=== PATIENT | female | born 1985 | race Caucasian/White ===

== ENCOUNTER 2019-09-21 02:55 | Inpatient (IN) ==
[2019-09-21 03:54] LABS: INFLUENZA A NEGATIVE (NEGATIVE); INFLUENZA B NEGATIVE (NEGATIVE)
[2019-09-21] MEDS: DUONEB (A & A) INH ONE (03:57)
[2019-09-21] MEDS ORDERED: DUONEB (A & A) INH ONE ×2 (04:30→06:16)
[2019-09-21] MEDS ORDERED: PREDNISONE PO ONE (04:30)
[2019-09-21 05:47] LABS: BASO# 0.03 X1000 (0.0-0.2); BASO% 0.3 % (0.0-0.8); EOS# 0.39 X1000 (0.0-0.7); EOS% 4.4 % (0.0-10.0); HEMATOCRIT 44.4 % (37.0-47.0); HEMOGLOBIN 14.6 g/dL (12.0-16.0); IMM GRAN# 0.02 X1000 (0.0-0.04); IMM GRAN% 0.2 % (0.0-0.5); LYMPH# 2.61 X1000 (1.2-3.4); LYMPH% 29.3 % (20.5-51.1); MCH 27.4 PG (27-31); MCHC 32.9 g/dL (33-37); MCV 83.5 FL (81-99); MONO# 0.64 X1000 (0.11-0.59); MONO% 7.2 % (1.7-9.3); NEUT# 5.21 X1000 (1.4-6.5); NEUT% 58.6 % (42.2-75.2); PLT 222 X1000 (130-400); RBC 5.32 XMIL (4.2-5.4); RDW 12.5 % (11.5-14.5)
[2019-09-21 05:58] LABS: AGAP 14; ALBUMIN 4.6 g/dL (3.5-5.0); ALKALINE PHOSPHATASE 76 U/L (32-104); BUN 9 mg/dL (8-22); CALCIUM 9.6 mg/dL (8.8-10.2); CHLORIDE 101 mmol/L (98-107); COSMO 275; CREATININE 0.6 mg/dL (0.5-0.9); ESTIMATED GFR > 60; GLUCOSE 113 mg/dL (70-104); GOT 14 U/L (10-30); GPT 13 U/L (10-36); POTASSIUM 4.2 mmol/L (3.5-5.1); SODIUM 138 mmol/L (136-145); TCO2 23 mmol/L (25-35); TOTAL PROTEIN 7.1 g/dL (6.3-8.3)
[2019-09-21] MEDS ORDERED: NS 1,000 ML IV ONE (06:38)
[2019-09-21] MEDS ORDERED: ROCEPHIN 1 GM in NS 50 ML IV ONE (06:38)
[2019-09-21] MEDS ORDERED: ZITHROMAX 500 MG/NS 500 MG/250 ML IVPB IV ONE (06:38)
[2019-09-21 07:18] LABS: BE 1.8 mmoll (-3.0-3.0); BLOOD TYPE ARTERIAL; HCO3-(ACT) 26.2 mmoll (20.0-26.0); O2(CT) 18.4 mL/dL (15.0-23.0); O2HB 92.8 % (95.0-99.0); PCO2(98.6) 29 mmHg (35-45); PO2(98.6) 58 mmHg (60-100); SAMPLE BLOOD; SAO2 95.8 % (95.0-100.0); THB 14.1 g/dL (11.5-17.4); pH(98.6) 7.52 (7.35-7.45)
[2019-09-21 07:21] LABS: ALLEN TEST YES; MODALITY ROOM AIR
--- NOTE | 2019-09-21 07:31 | Diag Imaging Result Doc PS360 ---
EXAM: CHEST-1 VIEW HISTORY: SOB TECHNIQUE: Single view COMPARISON: 09/08/2017 FINDINGS: The lungs are well expanded. The heart is not enlarged. The vessels are not distended. There are no infiltrates. No effusion identified. IMPRESSION: Negative exam. Electronically signed by Enoch Callaway 09/21/2019 7:28 AM
[2019-09-21 08:44] LABS: BLOOD TYPE ARTERIAL; HCO3-(ACT) 24.1 mmoll (20.0-26.0); O2(CT) 16.3 mL/dL (15.0-23.0); O2HB 93.5 % (95.0-99.0); PCO2(98.6) 29 mmHg (35-45); PO2(98.6) 62 mmHg (60-100); SAMPLE BLOOD; SAO2 96.5 % (95.0-100.0); THB 12.4 g/dL (11.5-17.4); pH(98.6) 7.48 (7.35-7.45)
[2019-09-21 08:47] LABS: ALLEN TEST YES; MODALITY ROOM AIR
[2019-09-21] MEDS ORDERED: DUONEB (A & A) INH PRN (11:39)
[2019-09-21] MEDS ORDERED: ZOFRAN IV PRN (11:39)
[2019-09-21] MEDS: LEVAQUIN 500 MG/D5W 500 MG/100 ML IVPB IV SCH (12:19)
[2019-09-21] MEDS: NS 1,000 ML IV SCH ×2 (12:19→22:24)
[2019-09-21] MEDS: DUONEB (A & A) INH SCH ×4 (12:34→23:09)
--- NOTE | 2019-09-21 14:37 | HISTORY AND PHYSICAL ---
PRIMARY CARE PROVIDER: None. CHIEF COMPLAINT: Shortness of breath. HISTORY OF PRESENT ILLNESS: Ms Rowe is a 34-year-old female with a past medical history of GERD, who came to the ED complaining of a 3-day history of shortness of breath, chest tightness, complaining that it hurts to breathe, cough and congestion, fever of 101 degrees, and wheezing. She did have 1 episode of vomitus secondary to a coughing spell but no cardiac type chest pain, no palpitations, but no real nausea, vomiting, diarrhea, or constipation. Workup in the ED was essentially unremarkable. ABG showed a respiratory and metabolic acidosis. However, she does have some mild expiratory wheezes. We will admit her for asthma exacerbation. She had been treated a couple of weeks back for sinusitis with amoxicillin. PAST MEDICAL HISTORY: Gastroesophageal reflux disease. PAST SURGICAL HISTORY: BTL, section. HOME MEDICATIONS: Prilosec. FAMILY HISTORY: Denies. SOCIAL HISTORY: No tobacco, alcohol or illicit drug use. No vaping. 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 REVIEW OF SYSTEMS: Twelve-point review of systems complete and negative except for those mentioned in HPI. PHYSICAL EXAMINATION: VITAL SIGNS: Temperature is 98 degrees, heart rate 96, respirations 18, blood pressure 133/83, O2 is 97% on 2 L nasal cannula. GENERAL: Ms. Rowe is a pleasant 34-year-old female who is sitting up in the bed in no acute distress. HEENT: Atraumatic, normocephalic. PERRL. NECK: Supple. Trachea midline. CARDIOVASCULAR: S1, S2 appreciated. No murmurs, gallops, rubs noted. RESPIRATORY: Lung sounds, expiratory wheezes. No rales, rhonchi. GASTROINTESTINAL: Soft, nontender, nondistended. Positive bowel sounds x4 quadrants. LOWER EXTREMITIES: Negative for edema. Bilateral pedal pulses are palpable. NEUROLOGIC: No focal deficits noted. DIAGNOSTIC DATA: Chest x-ray, negative exam. LABORATORY DATA: White count 8, hemoglobin and hematocrit 14 and 44, platelet count is 222,000. D-dimer less than 0.27. Initial ABG, pH 7.52, pCO2 of 29, PO2 of 58, bicarbonate of 26, base excess of 1.8, O2 saturation 95 on room air. Repeat ABG, pH 7.48, pCO2 of 29, PO2 of 62, bicarbonate of 24, base excess of -1, O2 of 96 on room air. Chemistry: Sodium 138, potassium 4.2, BUN 9, creatinine 0.6, blood glucose is 113. Plasma lactate 1.7. ASSESSMENT AND PLAN: 1. Asthma exacerbation. We will continue with IV antibiotics, bronchodilators, supplemental O2, IV steroids and aggressive pulmonary toilet. We will recheck her chest x-ray in the a.m. and continue with IV hydration and a regular diet. 2. Metabolic and respiratory alkalosis as evidenced on ABG. The patient was placed on supplemental O2. We will recheck her ABG in the a.m. 3. Gastroesophageal reflux disease. Continue Prilosec. 4. Further recommendations to follow physician evaluation, laboratory and diagnostic data. Dictated by SEBASTIAN Maldonado for John Wellington MD cc: John Wellington MD MTDD
[2019-09-21] MEDS: SOLU-MEDROL IV SCH ×2 (15:39→22:10)
--- NOTE | 2019-09-21 17:37 | HISTORY AND PHYSICAL ---
ADDENDUM: Patient seen and examined by myself. Full note dictated and discussed with nurse practitioner. Patient presented to the hospital with fever, cough, congestion, increased work of breathing. Has no previous history of pulmonary disease per her, although oddly enough the chart states she has a history of asthma. She currently has wheezing, O2 saturation 94% on room air. She is afebrile. We are going to admit her to the hospital, place her on breathing treatments, oxygen, steroids, and will follow. cc: John Wellington MD
--- NOTE | 2019-09-21 18:26 | EKG Report ---
Test Performed on : 09/21/2019 06:32:55 AM Test Reason : cp Blood Pressure : / mmHG Vent. Rate : 093 BPM Atrial Rate : 093 BPM P-R Int : 134 ms QRS Dur : 070 ms QT Int : 346 ms P-R-T Axes : 021 019 025 degrees QTc Int : 430 ms Normal sinus rhythm. Low voltage QRS Cannot rule out Anterior infarct , age undetermined Abnormal ECG When compared with ECG of 11-JAN-2011 21:12, Nonspecific T wave abnormality now evident in Anterolateral leads Unconfirmed Result
[2019-09-21] MEDS: TYLENOL PO PRN (19:16)
[2019-09-22] MEDS: DUONEB (A & A) INH SCH ×6 (02:49→23:29)
[2019-09-22] MEDS: NS 1,000 ML IV SCH ×3 (03:45→22:24)
[2019-09-22] MEDS: SOLU-MEDROL IV SCH ×3 (05:46→22:24)
[2019-09-22] MEDS: PRILOSEC PO SCH ×2 (05:46→08:11)
[2019-09-22 06:00] LABS: BE -1.2 mmoll (-3.0-3.0); BLOOD TYPE ARTERIAL; METHB 0.9 % (0.0-1.5); O2(CT) 17.2 mL/dL (15.0-23.0); O2HB 96.3 % (95.0-99.0); PCO2(98.6) 34 mmHg (35-45); PO2(98.6) 100 mmHg (60-100); SAMPLE BLOOD; SAO2 98.9 % (95.0-100.0); THB 12.6 g/dL (11.5-17.4); pH(98.6) 7.43 (7.35-7.45)
[2019-09-22 06:03] LABS: ALLEN TEST NO; MODALITY CANNULA
[2019-09-22 07:00] LABS: HEMATOCRIT 37.4 % (37.0-47.0); HEMOGLOBIN 11.9 g/dL (12.0-16.0); IMM GRAN# 0.07 X1000 (0.0-0.04); IMM GRAN% 0.4 % (0.0-0.5); LYMPH# 1.29 X1000 (1.2-3.4); LYMPH% 8.3 % (20.5-51.1); MCH 26.9 PG (27-31); MCHC 31.8 g/dL (33-37); MCV 84.4 FL (81-99); MONO# 0.34 X1000 (0.11-0.59); MONO% 2.2 % (1.7-9.3); MPV 10.5 FL (7.4-10.4); NEUT# 13.86 X1000 (1.4-6.5); NEUT% 89.1 % (42.2-75.2); PLT 263 X1000 (130-400); RBC 4.43 XMIL (4.2-5.4); RDW 12.5 % (11.5-14.5); WBC 15.56 X1000 (4.8-10.8)
[2019-09-22 07:11] LABS: AGAP 14; BUN 7 mg/dL (8-22); CHLORIDE 107 mmol/L (98-107); COSMO 279; CREATININE 0.5 mg/dL (0.5-0.9); ESTIMATED GFR > 60; GLUCOSE 161 mg/dL (70-104); SODIUM 139 mmol/L (136-145); TCO2 19 mmol/L (25-35)
--- NOTE | 2019-09-22 07:22 | Diag Imaging Result Doc PS360 ---
EXAM: CHEST-PORTABLE - 09/22/2019 HISTORY: short of breath TECHNIQUE: Portable chest one view COMPARISON: 09/21/2019 FINDINGS: Heart size is normal. The lungs appear clear. There are possible tiny bilateral pleural effusions. There is no pneumothorax seen. IMPRESSION: Possible tiny bilateral pleural effusions. No other acute changes. Electronically signed by Nathan Null 09/22/2019 7:20 AM
[2019-09-22] MEDS: TYLENOL PO PRN (09:10)
[2019-09-22 09:19] LABS: LYMPHS 8 % (21-51); MONO 4 % (1-9); SEGS 88 % (42-75)
[2019-09-22] MEDS: TORADOL IV PRN ×2 (10:16→22:24)
--- NOTE | 2019-09-22 13:43 | PROGRESS NOTE ---
DATE: 09/22/2019 SUBJECTIVE: Patient notes she is still short of breath. States that she feels a little worse today breathing-[place]ough[place] than she did yesterday, notes she did not sleep at all last night. She was awake most of the night coughing and feeling some chest tightness. OBJECTIVE: Vital Signs: Temperature 97.6, pulse 70, respiratory rate 18, BP 116/66. General: Patient is awake, she pleasant. She is in mild respiratory distress. HEENT: Normocephalic. Neck: Supple. Cardiovascular: Regular rate. Chest: Improved from yesterday. Decreased wheezing, improved air movement from yesterday's exam. Abdomen: Soft, nondistended. Extremities: Moves all extremities. Neurologic: No changes. ASSESSMENT: 1. Asthma exacerbation. 2. Leukocytosis. 3. Reflux. PLAN: We are going to continue patient in the hospital. Continue breathing treatments, oxygen and steroids, and will follow. cc: John Wellington MD
[2019-09-22] MEDS: LEVAQUIN 500 MG/D5W 500 MG/100 ML IVPB IV SCH (14:45)
[2019-09-23] MEDS: DUONEB (A & A) INH SCH ×6 (03:34→23:15)
[2019-09-23] MEDS: NS 1,000 ML IV SCH (05:05)
[2019-09-23] MEDS: SOLU-MEDROL IV SCH ×2 (05:05→16:00)
[2019-09-23 06:37] LABS: HEMATOCRIT 34.6 % (37.0-47.0); HEMOGLOBIN 10.7 g/dL (12.0-16.0); MCH 26.8 PG (27-31); MCHC 30.9 g/dL (33-37); MCV 86.5 FL (81-99); MPV 10.6 FL (7.4-10.4); RDW 12.6 % (11.5-14.5); WBC 19.27 X1000 (4.8-10.8)
[2019-09-23] MEDS: PRILOSEC PO SCH (09:15)
[2019-09-23] MEDS ORDERED: BENADRYL IV ONE (11:27)
[2019-09-23] MEDS ORDERED: SODIUM CHLORIDE 0.9% INJ ONE (11:28)
[2019-09-23] MEDS ORDERED: PEPCID IV ONE (11:28)
[2019-09-23] MEDS: LEVAQUIN 500 MG/D5W 500 MG/100 ML IVPB IV SCH (13:27)
--- NOTE | 2019-09-23 13:49 | PROGRESS NOTE ---
DATE: 09/23/2019 SUBJECTIVE: The patient notes that she is breathing a lot easier. She is feeling better. Less shortness of breath. Denies any wheezing last night. PHYSICAL EXAMINATION: Vital Signs: Reviewed. Temperature 97.7, pulse 85, respiratory rate 18, BP 130/76. General: The patient is awake, alert, currently in no respiratory distress, although she is sitting quietly in the bed. HEENT: Normocephalic. Neck: Supple. CV: Regular rate. Chest: Improved air movement. Minimal wheezing. Extremities: Moves all extremities. Neurologic: No focal changes. ASSESSMENT: 1. Asthma exacerbation, improved. I am going to wean her steroids again today. 2. Leukocytosis secondary most likely to her steroids. 3. Chronic reflux. Continue Prilosec. PLAN: We are going to continue the patient in the hospital, continue breathing treatments. We will wean her steroids, continue oxygen. Hopefully, she will continue to improve and can be discharged home tomorrow. cc: John Wellington MD
[2019-09-23] MEDS: TORADOL IV PRN ×2 (16:00→23:17)
[2019-09-24] MEDS: DUONEB (A & A) INH SCH ×6 (03:18→23:24)
[2019-09-24] MEDS: SOLU-MEDROL IV SCH ×2 (04:04→16:41)
[2019-09-24] MEDS: PRILOSEC PO SCH ×2 (06:19→06:21)
[2019-09-24] MEDS: TORADOL IV PRN (10:38)
[2019-09-24] MEDS: LEVAQUIN 500 MG/D5W 500 MG/100 ML IVPB IV SCH (12:23)
--- NOTE | 2019-09-25 02:29 | PROGRESS NOTE ---
DATE: 09/24/2019 SUBJECTIVE: The patient notes that her cough has become much more productive, she is actually coughing up stuff this morning. States that she feels a lot better, but her cough scares her. She still had some shortness of breath and wheezing last night. OBJECTIVE: Vital Signs: Temperature 97 degrees, pulse 78, respiratory rate 18, blood pressure 121/71. General: The patient is awake, currently she is in mild respiratory distress which is much improved from yesterday. HEENT: Normocephalic. Neck: Supple. Cardiovascular: Regular rate. Chest: Decreased but equal breath sounds. Positive rhonchi throughout. No current wheezing. Abdomen: Soft, nondistended. Extremities: Moves all extremities. Neurologic: No focal changes. ASSESSMENT: 1. Asthma exacerbation with acute bronchitis. 2. Metabolic acidosis, resolved. 3. Leukocytosis secondary to steroids. PLAN: We will continue the patient in the hospital, again weaning steroids, and continue breathing treatments, oxygen. Further orders as needed. Hopefully she can discharge home in 1 to 2 days. cc: John Wellington MD
[2019-09-25] MEDS: DUONEB (A & A) INH SCH ×6 (03:57→23:33)
[2019-09-25] MEDS: SOLU-MEDROL IV SCH ×2 (04:07→17:21)
[2019-09-25] MEDS: PRILOSEC PO SCH ×2 (06:18→06:22)
[2019-09-25] MEDS ORDERED: CHLORASEPTIC SPRAY MT ONE (10:51)
[2019-09-25] MEDS: LEVAQUIN 500 MG/D5W 500 MG/100 ML IVPB IV SCH (13:06)
[2019-09-25] MEDS ORDERED: BENADRYL PO PRN (14:19)
[2019-09-25] MEDS ORDERED: PRILOSEC PO ONE (15:10)
[2019-09-25] MEDS: TORADOL IV PRN ×2 (15:31→23:30)
--- NOTE | 2019-09-25 18:30 | PROGRESS NOTE ---
DATE: 09/25/2019 SUBJECTIVE: Patient has no major complaints. OBJECTIVE: Vitals: Blood pressure is 125/81, heart rate of 90, respiratory rate 20, temperature 97.6 degrees, 97% on room air. Cardiovascular: Regular rate and rhythm. Pulmonary: Bilateral breath sounds, clear to auscultation. GI: Soft, nontender, nondistended. Bowel sounds are positive. LABORATORY DATA: White count 19, hemoglobin and hematocrit 10 and 34, platelets 256. PROBLEM LIST: 1. Acute asthmatic exacerbation with acute bronchitis. We will continue antibiotics, weaning steroids. Her white count is still fairly elevated. We will monitor that. I do not think she would benefit from dropping her steroids any further. We have changed her Levaquin to daily, and we will continue to monitor. 2. Leukocytosis, likely due to steroids. I think if her numbers improve by tomorrow, anticipate discharge tomorrow. cc: Paulo Bill MD
[2019-09-26] MEDS: DUONEB (A & A) INH SCH ×3 (03:17→11:16)
[2019-09-26] MEDS: MUCINEX PO SCH ×2 (04:02→08:20)
[2019-09-26] MEDS: SOLU-MEDROL IV SCH (04:12)
[2019-09-26 06:31] LABS: BASO# 0.03 X1000 (0.0-0.2); BASO% 0.2 % (0.0-0.8); EOS# 0.01 X1000 (0.0-0.7); EOS% 0.1 % (0.0-10.0); HEMATOCRIT 36.4 % (37.0-47.0); HEMOGLOBIN 11.3 g/dL (12.0-16.0); IMM GRAN# 0.71 X1000 (0.0-0.04); IMM GRAN% 5.1 % (0.0-0.5); LYMPH# 2.06 X1000 (1.2-3.4); LYMPH% 14.7 % (20.5-51.1); MCH 26.7 PG (27-31); MCV 86.1 FL (81-99); MONO# 0.83 X1000 (0.11-0.59); MONO% 5.9 % (1.7-9.3); MPV 10.2 FL (7.4-10.4); PLT 240 X1000 (130-400); RBC 4.23 XMIL (4.2-5.4); RDW 12.4 % (11.5-14.5); WBC 14.04 X1000 (4.8-10.8)
[2019-09-26] MEDS: TORADOL IV PRN (06:39)
[2019-09-26] MEDS ORDERED: PRILOSEC PO SCH (07:00)
[2019-09-26] MEDS ORDERED: MUCOMYST 20% INH SCH (07:30)
[2019-09-26 08:46] LABS: LYMPHS 19 % (21-51); MONO 6 % (1-9); SEGS 75 % (42-75)
[2019-09-26] MEDS ORDERED: LEVAQUIN PO SCH (09:00)
[2019-09-26 11:40] VITALS: BP 111/76
--- NOTE | 2019-09-27 12:24 | DISCHARGE SUMMARY ---
ADMISSION DATE: 09/21/2019 DISCHARGE DATE: 09/26/2019 DISCHARGE ADDENDUM: DISCHARGE DIAGNOSES: 1. Chronic obstructive pulmonary disease exacerbation. 2. Bronchitis. HISTORY AND HOSPITAL COURSE: Briefly, a 34-year-old female. She is breathing a little bit better, although today she says she feels worse, but her breathing has overall improved. She does not have as much rhonchi. She did have some productive sputum overnight, but on exam, there is no wheezing or rales. White count is down to 14,000 from 19,000. PROBLEM LIST: Asthmatic exacerbation with acute bronchitis. We will continue antibiotics, steroid taper, breathing treatments, and follow. Advised that it will take a little bit more to get her back to her baseline, but I felt comfortable for her discharge today. TIME SPENT: A 32-minute discharge note with Jackie Ramos. cc: Paulo Bill MD
--- NOTE | 2019-09-30 11:21 | DISCHARGE SUMMARY ---
ADMISSION DATE: 09/21/2019 DISCHARGE DATE: 09/26/2019 PRIMARY CARE PHYSICIAN: None. ADMISSION DIAGNOSES: 1. Asthma exacerbation. 2. Metabolic and respiratory alkalosis per arterial blood gases. 3. Gastroesophageal reflux disease. DISCHARGE DIAGNOSES: 1. An acute asthma exacerbation with acute bronchitis. 2. Leukocytosis, likely secondary to steroids. SUMMARY OF FINDINGS: This is a 34-year-old female who presented to the ED with a 3-day history of shortness of breath, chest tightness, and complaining that it hurt to breathe, cough and congestion, fever of 101 degrees, and wheezing. She did have one episode of vomitus secondary to her coughing spell but no cardiac type of chest pain, palpitations, or real nausea, vomiting, diarrhea. Workup in the ED was unremarkable. Her ABG did show some respiratory and metabolic acidosis. She had some mild expiratory wheezes so we admitted her, placed her on IV antibiotics, bronchodilators, supplemental O2, IV steroids, and aggressive pulmonary toilet. We rechecked her chest x-ray on 09/22/2019. That showed possible tiny bilateral pleural effusions but no other acute changes. She responded well to the therapy and it was felt now that she could safely be discharged home. DISCHARGE MEDICATIONS: Included Mucinex 600 mg p.o. b.i.d. (#60 with 1 refill), Combivent Respimat inhaler 1 puff inhalation q.6 hours (#1 inhaler with 1 refill), Levaquin 500 mg p.o. daily (#7 with no refills), Medrol Dosepak to take as directed, and omeprazole 20 mg p.o. daily. FOLLOWUP: She will follow up with her primary care physician in 1 to 2 weeks. May be off through the week and resume work on 10/01/2019. All discharge instructions have been reviewed with the patient and she verbalized understanding. A 35 minute discharge. Dictated by SEBASTIAN Sharp for Paulo Bill MD cc: SEBASTIAN Sharp MD
--- NOTE | 2019-10-19 17:30 | PROVIDER DOCUMENTATION ---
This chart was entered by Zohreh Oh Scribe, acting as scribe for Christiano Lopez MD. HPI-General Adult - General Chief Complaint: Cold Symptoms Stated Complaint: COLD LIKE SX Time Seen by Provider: 09/21/19 03:25 Source: patient Allergies/Adverse Reactions: Patient Allergies Allergy/AdvReac Type Severity Reaction Status Date / Time No Known Allergies Allergy Verified 09/21/19 03:06 Home Medications: Home Medication List Medication Instructions Recorded Confirmed Last Taken Type NK [No Home Medications] 09/21/19 09/21/19 Unknown History - History of Present Illness -Gen Adult Nature of Presenting Problems: 34 yof presents to the ed with c/o 3 days of cough, fever, bodyaches, congestion and sob with exertion. pt looks to not feel well but appears nontoxic in appearance Location of Pain/Injury: reports: generalized (bodyaches) Quality of Pain: reports: aching Severity: reports: moderate Onset/Duration: reports: 3 days ago Timing: reports: still present, getting worse Context/Activities at Onset: reports: light activity Modifying Factors: improves with: nothing Associated Symptoms: reports: cough, EENT symptoms, fatigue, fever/chills, mal aise, muscle aches, shortness of breath (wheezing). denies: back/neck pain, chest pain, diaphoresis, headaches, nausea, vomiting Similar Symptoms Previously?: Yes (asthma) Recently seen or treated by another doctor?: No Review of Systems - Adult - REVIEW OF SYSTEMS - ADULT Constitutional: reports: see HPI, chills, fever, fatique Eyes: reports: no symptoms reported Ears, Nose, Mouth & Throat: reports: see HPI, other (nasal congestion). denies: hoarseness, throat pain Cardiovascular: denies: chest pain, syncope Respiratory: reports: cough, dyspnea on exertion, shortness of breath, wheezing Gastrointestinal: denies: abdominal pain, diarrhea, nausea, vomiting Genitourinary: reports: no symptoms reported Musculoskeletal: reports: see HPI, muscle aches. denies: neck pain Integumentary: reports: no symptoms reported Neurological: denies: dizziness/vertigo, headache/migraines Psychiatric: reports: no symptoms reported Endocrine: reports: no symptoms reported Hematologic/Lymphatic: reports: no symptoms reported Allergic/Immunologic: reports: no symptoms reported All Other Systems: Reviewed and Negative Past History - Adult - PAST MEDICAL HISTORY-ADULT Review of Records: reports: Old Records Reviewed, Nursing Assessment Review, Medications Reviewed, Social history reviewed & non-contributory. Major Childhood Illnesses: reports: denies history Cardiovascular: reports: denies history Respiratory: reports: asthma Gastrointestinal: reports: denies history Obstetrical/Gynecological: reports: other (PCOS) Genitourinary: reports: denies history Musculoskeletal: reports: denies history Hand Dominance: Right Handed Neurological: reports: denies history Psychiatric: reports: denies history Endocrine/Immune: reports: denies history Other Conditions: reports: psoriasis - PRIOR SURGERIES/PROCEDURES Surgical/Procedure History: reports: BTL, , other (Laparoscopy) - IMMUNIZATION STATUS Childhood Immunizations: See Nurse Assessment Flu Vaccine: See Nurse Assessment - FAMILY HISTORY Family History: reviewed, not pertinent - SOCIAL HISTORY Smoking: denies Substance Use: denies Living Situation: family Physical Exam-General - PHYSICAL EXAM-ADULT Initial Vital Signs Reviewed: Yes - CONSTITUTIONAL General Appearance: appears well, alert, mild distress - EYES Eyes: PERRL/EOMI, pink conjunctivae - HEAD, EARS, NOSE, MOUTH & THROAT HENMT: normocephalic/atraumatic, moist mucous membranes, other (nasal congestiopn). negative: pharyngeal erythema, tonsillar exudate - NECK Neck: non-tender, full range of motion, supple, normal inspection - RESPIRATORY Respiratory: chest non-tender, wheezing, other (sob with exertiuon and cough). negative: crackles, rales, rhonchi - CARDIOVASCULAR Cardiovascular: normal peripheral pulses, regular rate, rhythm - CHEST (BREASTS) Chest/Breast: deferred - GASTROINTESTINAL (ABDOMEN) Abdominal Exam: normal bowel sounds, non tender, soft - GENITOURINARY Female Genitalia/Pelvic Exam: deferred Rectal Exam: deferred Hemoccult Exam: deferred - LYMPHATIC Lymphatic: no adenopathy - MUSCULOSKELETAL Back Exam: normal inspection, no CVA tenderness, no vertebral tenderness Extremity: normal range of motion, non-tender, normal gait, normal inspection, other (genralized bodyaches) - SKIN Integumentary: normal color, normal turgor, warm/dry - NEUROLOGIC Neurologic: grossly normal - PSYCHIATRIC Psych/Mental Status: normal mood/affect, normal thought content, normal thought process, oriented x 3 Progress - PLAN OF CARE/RESULTS Progress/Plan/Lab Results: Vital Signs - 8 hr 09/21/19 02:59 09/21/19 03:57 09/21/19 06:15 Temperature 98.4 F 99.5 F Pulse Rate 97 H 74 102 H Respiratory Rate 20 20 20 Blood Pressure 112/71 119/79 O2 Sat by Pulse Oximetry 92 L 99 96 09/21/19 07:00 09/21/19 08:00 09/21/19 08:07 Temperature 98 F Pulse Rate 91 H 98 H 100 H Respiratory Rate 19 16 15 Blood Pressure 120/79 104/68 104/68 O2 Sat by Pulse Oximetry 94 L 95 97 09/21/19 09:05 Temperature Pulse Rate 90 Respiratory Rate 20 Blood Pressure 119/76 O2 Sat by Pulse Oximetry 97 Bedside Urine ED: Urine Bedside Start: 09/21/19 03:09 Freq: NOW Status: Active Protocol: Activity Type Activity Date Activity User E-Sign Co-Sign Detail Recorded Client Recorded Date Recorded By Document 09/21/19 03:09 [id number] 09/21/19 03:15 [id number] 09/21/19 03:09 Point of Care [Bedside Point of Care] -Lot # [id number] - Results Negative -Control Line Visible? Yes Laboratory Results - last 24 hr 09/21/19 09/21/19 09/21/19 03:10 03:10 05:13 WBC RBC Hgb Hct MCV MCH MCHC RDW Std Deviation Plt Count MPV Immature Gran % (Auto) Neut % (Auto) Lymph % (Auto) Bledsoe % (Auto) Eos % (Auto) Baso % (Auto) Immature Gran # (Auto) Neut # (Auto) Lymph # (Auto) Bledsoe # (Auto) Eos # (Auto) Baso # (Auto) D-Dimer, Quantitative Specimen Type Sample Site pH pCO2 pO2 HCO3 Base Excess Oxyhemoglobin ABG O2 Sat (Calculated) ABG O2 Saturation ABG Carboxyhemoglobin ABG Methemoglobin Skip Test A-a O2 Difference Total Hemoglobin Lactate Blood Gas Modality FiO2 % Sodium Potassium Chloride Carbon Dioxide Anion Gap BUN Creatinine Estimated GFR/1.73 m2 BUN/Creatinine Ratio Glucose Calculated Osmolality Calcium Total Bilirubin AST ALT Alkaline Phosphatase Troponin T < 0.010 Total Protein Albumin Globulin Albumin/Globulin Ratio Plasma Lactate Influenza A (Rapid) NEGATIVE Influenza B (Rapid) NEGATIVE Group A Strep Rapid NEGATIVE 09/21/19 09/21/19 09/21/19 05:13 05:13 05:13 WBC 8.90 RBC 5.32 Hgb 14.6 Hct 44.4 MCV 83.5 MCH 27.4 MCHC 32.9 L RDW Std Deviation 12.5 Plt Count 222 MPV 11.0 H Immature Gran % (Auto) 0.2 Neut % (Auto) 58.6 Lymph % (Auto) 29.3 Bledsoe % (Auto) 7.2 Eos % (Auto) 4.4 Baso % (Auto) 0.3 Immature Gran # (Auto) 0.02 Neut # (Auto) 5.21 Lymph # (Auto) 2.61 Bledsoe # (Auto) 0.64 H Eos # (Auto) 0.39 Baso # (Auto) 0.03 D-Dimer, Quantitative < 0.27 Specimen Type Sample Site pH pCO2 pO2 HCO3 Base Excess Oxyhemoglobin ABG O2 Sat (Calculated) ABG O2 Saturation ABG Carboxyhemoglobin ABG Methemoglobin Skip Test A-a O2 Difference Total Hemoglobin Lactate Blood Gas Modality FiO2 % Sodium 138 Potassium 4.2 Chloride 101 Carbon Dioxide 23 L Anion Gap 14 BUN 9 Creatinine 0.6 Estimated GFR/1.73 m2 > 60 BUN/Creatinine Ratio 15 Glucose 113 H Calculated Osmolality 275 Calcium 9.6 Total Bilirubin 0.30 AST 14 ALT 13 Alkaline Phosphatase 76 Troponin T Total Protein 7.1 Albumin 4.6 Globulin 3.0 Albumin/Globulin Ratio 2.0 Plasma Lactate Influenza A (Rapid) Influenza B (Rapid) Group A Strep Rapid 09/21/19 09/21/19 09/21/19 06:55 07:06 08:21 WBC RBC Hgb Hct MCV MCH MCHC RDW Std Deviation Plt Count MPV Immature Gran % (Auto) Neut % (Auto) Lymph % (Auto) Bledsoe % (Auto) Eos % (Auto) Baso % (Auto) Immature Gran # (Auto) Neut # (Auto) Lymph # (Auto) Bledsoe # (Auto) Eos # (Auto) Baso # (Auto) D-Dimer, Quantitative Specimen Type ARTERIAL ARTERIAL Sample Site L RADIAL L RADIAL pH 7.52 H 7.48 H pCO2 29 L 29 L pO2 58 L 62 HCO3 26.2 H 24.1 Base Excess 1.8 -1.0 Oxyhemoglobin 92.8 L 93.5 L ABG O2 Sat (Calculated) 18.4 16.3 ABG O2 Saturation 95.8 96.5 ABG Carboxyhemoglobin 2.10 2.10 ABG Methemoglobin 1.0 1.0 Skip Test YES YES A-a O2 Difference 55.0 51.0 Total Hemoglobin 14.1 12.4 Lactate 1.80 1.50 Blood Gas Modality ROOM AIR ROOM AIR FiO2 % 21.0 21.0 Sodium Potassium Chloride Carbon Dioxide Anion Gap BUN Creatinine Estimated GFR/1.73 m2 BUN/Creatinine Ratio Glucose Calculated Osmolality Calcium Total Bilirubin AST ALT Alkaline Phosphatase Troponin T Total Protein Albumin Globulin Albumin/Globulin Ratio Plasma Lactate 1.7 Influenza A (Rapid) Influenza B (Rapid) Group A Strep Rapid Orders Category Date Time Status ED: Urine Bedside NOW Care 09/21/19 03:09 Active CHEST-1 VIEW [RAD] Stat Exams 09/21/19 03:30 Completed ABG [RESP] Routine Lab 09/21/19 06:55 Completed ABG [RESP] Routine Lab 09/21/19 08:21 Completed BLOOD CULTURE [BLDCUL] Stat Lab 09/21/19 07:08 Received CBC WITH ELECTRONIC DIFF [HEME] Stat Lab 09/21/19 05:13 Completed COMPREHENSIVE METABOLIC PANEL [CHEM] Stat Lab 09/21/19 05:13 Completed D-DIMER [COAG] Stat Lab 09/21/19 05:13 Completed Flu [INFLUENZA SCREEN PL] Stat Lab 09/21/19 03:10 Completed LACTATE, PLASMA [CHEM] Stat Lab 09/21/19 07:06 Completed TROPONIN T Stat Lab 09/21/19 05:13 Completed strep [DIRECT STREP PL] Stat Lab 09/21/19 03:10 Completed 0.9% Sodium Chloride Inj [Ns] 1,000 ml Med 09/21/19 06:38 Discontinued IV 999 mls/hr Albuterol 2.5MG/Ipratrop 0.5MG [Duoneb (A & A)] Med 09/21/19 03:31 Discontinued 3 ml INH NOW ONE Albuterol 2.5MG/Ipratrop 0.5MG [Duoneb (A & A)] Med 09/21/19 06:16 Discontinued 3 ml INH NOW ONE Albuterol 2.5MG/Ipratrop 0.5MG [Duoneb (A & A)] Med 09/21/19 04:30 Discontinued 6 ml INH NOW ONE Azithromycin 500 mg/Ns [Zithromax 500 mg/Ns] Med 09/21/19 06:38 Discontinued 500 mg in 250 ml IV NOW CefTRIAXONE [Rocephin] 1 gm Med 09/21/19 06:38 Discontinued 0.9% Sodium Chloride Inj [Ns] 50 ml IV NOW Prednisone Med 09/21/19 04:30 Discontinued 60 mg PO NOW ONE Aerosol Treatments Routine Oth 09/21/19 03:31 Completed Aerosol Treatments Routine Oth 09/21/19 04:30 Completed Aerosol Treatments Routine Oth 09/21/19 06:17 Completed Aerosol Treatments Stat Oth 09/21/19 03:31 Completed Aerosol Treatments Stat Oth 09/21/19 04:30 Completed Aerosol Treatments Stat Oth 09/21/19 06:17 Completed EKG [EKG] Stat Ther 09/21/19 06:17 Ordered Result Diagrams: 09/21/19 05:13 09/21/19 05:13 - REASSESSMENT Reassessment #1 Time Reassessed: 08:00 Status: unchanged (dr lopez at bedside) Reassessment #2 Time Reassessed: 08:55 Status: unchanged (dr lopez at bedside) - XRAY 1 XRAY: Bilateral XRAY Study: Chest Impression: See EMR Report (EXAM: CHEST-1 VIEW HISTORY: SOB TECHNIQUE: Single view COMPARISON: 09/08/2017 FINDINGS: The lungs are well expanded. The heart is not enlarged. The vessels are not distended. There are no infiltrates. No effusion identified. IMPRESSION: Negative exam. El ectronically signed by Enoch Callaway 09/21/2019 7:28 AM 09/21/19727 Interpreting Physician: Enoch Callaway MD Dictated Date/Time: 09/21/19727 cc: Liliam Chiang DO; None,PCP) - CONSULTS/PCP/HOSPITALIST Notification #1 *Consult/PCP/Hospitalist*: hospitalist dr batres Time Discussed: 09:28 Consult Disposition: Admit Departure - Departure Date of Disposition Decision: 09/21/19 Time of Disposition Decision: 09:27 DIAGNOSIS: Asthma Qualifiers: Asthma severity: moderate Asthma persistence: unspecified Asthma complication type: unspecified Qualified Code(s): J45.909 - Unspecified asthma, uncomplicated Disposition: ADMITTED INPATIENT 09 Certified Medical Emergency: Emergent Condition: Stable Referrals and Follow-Ups: None,PCP [Primary Care Provider] - - Critical Care Note This patient required my direct & personal management of CC.: Yes Total Time (mins): 31 Critical Care Statement: This patient required my direct personal management to treat or rule out processes, the absence of which, could potentiallly result in sudden, clinically significant life or limb threatening deterioration. Attestation - Physician/ HARRIET Attestation Patient care was provided by Advanced Practice Provider:: No The physician spent face to face time with patient:: Yes Advanced Practice Provider documentation review:: Supervising physician onsite and consulted in the evaluation and care of this patient. The physician did have a face to face encounter with the patient. This chart was documented by the indicated scribe, (Zohreh Oh Scribe) an d accurately reflects the services I performed and decisions made by me, Christiano Lopez MD, as attested by the provider's signature.
== END 2019-09-26 14:05 | disposition home or self-care (01) | DRG 202 ==
LOC: P.ED 02:55 → SUATTDRO 02:56 → P.MEDSURG 10:35
PROVIDERS: ATTEND Internal Medicine